=== PATIENT | female | born 1975 | race Caucasian/White ===

== ENCOUNTER → 2020-08-25 13:44 | Outpatient (CLI) | payer OTHER, SELFPAY ==
--- NOTE | ~2020-08-25 | MM_ITS ---
EXAMINATION: MM screening saúl BI w lesley HISTORY: Screening TECHNIQUE: Craniocaudal and mediolateral oblique 3-D tomosynthesis images were obtained and synthetic 2-D images were generated. CAD analysis was submitted and interpreted. COMPARISON: Comparison to multiple prior studies sequentially, with oldest reviewed study dated 08/24. BREAST PARENCHYMAL COMPOSITION: There are scattered areas of fibroglandular density. FINDINGS: There is no evidence of suspicious mass, calcification, or architectural distortion to sugg est malignancy in either breast. There has been no suspicious interval change. IMPRESSION: 1. No mammographic evidence of malignancy. 2. Recommend routine screening mammography in one year. BI-RADS Category 1: Negative Reviewed, dictated and finalized at location A. 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
== END ==
PROVIDERS: Visit Provider Nurse Practitioner
DX: Z12.31 Encounter for screening mammogram for malignant neoplasm of breast (principal)
CPT/HCPCS: 77063; 77067

== ENCOUNTER → 2022-05-16 10:47 | Outpatient (CLI) | payer BC, SELFPAY ==
--- NOTE | ~2022-05-16 | US_ITS ---
EXAMINATION: US right upper quadrant DATE: 05/16/2022 11:31 INDICATION: Elevated liver enzymes TECHNIQUE: Multiple grayscale and Doppler ultrasound images of the abdomen were obtained. COMPARISON: None available FINDINGS: The head and body of the pancreas are normal. The pancreatic tail is obscured by bowel gas. The liver is normal with normal echogenicity and echotexture. No surface nodularity. Normal hepatope vince flow in the main portal vein. A stone is present in the nondistended gallbladder. There also appe ars to be a small amount of gallbladder sludge. No pericholecystic fluid or gallbladder wall thickeni ng are identified. The normal common bile duct measures 4 mm. There was no sonographic Contreras sign. IMPRESSION: 1. Cholelithiasis and gallbladder sludge without evidence of cholecystitis. Reviewed, dictated and finalized at location B.
== END ==
PROVIDERS: PCP Family Medicine; Visit Provider Nurse Practitioner Family
DX: R74.8 Abnormal levels of other serum enzymes (principal); K80.20 Calculus of gallbladder without cholecystitis without obstruction; K83.9 Disease of biliary tract, unspecified
CPT/HCPCS: 76705

== ENCOUNTER → 2022-07-25 12:30 | Outpatient (CLI) | payer BC, SELFPAY ==
--- NOTE | ~2022-07-25 | MM_ITS ---
EXAMINATION: MM screening saúl BI w lesley HISTORY: Screening mammogram TECHNIQUE: Craniocaudal and mediolateral oblique 3-D tomosynthesis images were obtained and synthetic 2-D images were generated. CAD analysis was submitted and interpreted. COMPARISON: 08/25/2020, 01/30/2018, 06/07/2016 bilateral screening mammogram examinations BREAST PARENCHYMAL COMPOSITION: There are scattered areas of fibroglandular density. FINDINGS: There is no evidence of suspicious mass, calcification, or architectural distortion to sugg est malignancy in either breast. There has been no suspicious interval change. IMPRESSION: 1. No mammographic evidence of malignancy. 2. Recommend routine screening mammography in one year. BI-RADS Category 1: Negative Reviewed, dictated and finalized at location A. [employer] TECHNICIAN
== END ==
PROVIDERS: PCP Nurse Practitioner Family; Visit Provider Nurse Practitioner
DX: Z12.31 Encounter for screening mammogram for malignant neoplasm of breast (principal)
CPT/HCPCS: 77063; 77067

== ENCOUNTER 2024-04-29 12:44 | Outpatient (CLI) | payer OTHER, SELFPAY ==
--- NOTE | ~2024-04-29 | MM_ITS ---
EXAMINATION: MM screening saúl BI w lesley HISTORY: Screening TECHNIQUE: Craniocaudal and mediolateral oblique 3-D tomosynthesis images were obtained and synthetic 2-D images were generated. CAD analysis was submitted and interpreted. COMPARISON: Comparison to multiple prior studies sequentially, with oldest reviewed study dated 12/2017. BREAST PARENCHYMAL COMPOSITION: Not dense: There are scattered areas of fibroglandular density. FINDINGS: There is a developing asymmetry in the lower central aspect of the right breast, posterior third. The left breast is stable without evidence for malignancy. IMPRESSION: 1. Developing focal asymmetry in the lower central right breast. 2. Additional mammographic views and possible breast ultrasound are recommended. BI-RADS Category 0: Incomplete: Needs additional imaging evaluation. Reviewed, dictated and finalized at location B. IMPRESSION: 1. Developing focal asymmetry in the lower central right breast. 2. Additional mammographic views and possible breast ultrasound are recommended . BI-RADS Category 0: Incomplete: Needs additional imaging evaluation.
== END 2024-04-29 12:45 | disposition home or self-care (01) ==
PROVIDERS: PCP Nurse Practitioner Family; Visit Provider Nurse Practitioner
DX: Z12.31 Encounter for screening mammogram for malignant neoplasm of breast (principal)
CPT/HCPCS: 77063; 77067

== ENCOUNTER 2024-05-20 12:54 | Outpatient (CLI) | payer OTHER, SELFPAY ==
--- NOTE | ~2024-05-20 | MMUS_ITS ---
EXAMINATION: MM diagnostic saúl RT w lesley, US breast RT limited HISTORY: Follow-up right breast mass TECHNIQUE: Additional 3-D tomosynthesis images of the right breast were performed and synthetic 2-D i mages were generated. CAD analysis was submitted and interpreted. High resolution Limited right breas t ultrasound was performed. COMPARISON: Comparison to multiple prior studies sequentially, with oldest reviewed study dated 05/28. BREAST PARENCHYMAL COMPOSITION: Not dense: There are scattered areas of fibroglandular density.. FINDINGS: MAMMOGRAPHIC FINDINGS: There is a low-density mass in the lower central aspect of the right breast, middle-posterior depth. There are no suspicious areas of architectural distortion or calcification. ULTRASOUND: Limited right breast ultrasound: At 3:00, 2 cm from the nipple there is a 5 mm cyst. At 6:00, 2 cm fr om the nipple there is a 9 mm cyst. This corresponds to the mammographic finding. IMPRESSION: 1. No evidence for malignancy in the right breast. Benign findings. 2. Routine yearly screening mammogram and regular clinical breast examination are recommended. BI-RADS Category 2: Benign finding(s). Reviewed, dictated and finalized at location B. IMPRESSION: 1. No evidence for malignancy in the right breast. Benign findings. 2. Routine yearly screening mammogram and regular clinical breast examination a re recommended. BI-RADS Category 2: Benign finding(s).
== END 2024-05-20 12:55 | disposition home or self-care (01) ==
PROVIDERS: PCP Nurse Practitioner Family; Visit Provider Obstetrics & Gynecology Gynecology
DX: R92.8 Other abnormal and inconclusive findings on diagnostic imaging of breast (principal)
CPT/HCPCS: 76642; 77061; 77065; G0279

== ENCOUNTER 2025-07-01 15:39 | Outpatient (CLI) | payer OTHER, SELFPAY ==
--- NOTE | ~2025-07-01 | MM_ITS ---
EXAMINATION: MM screening saúl BI w lesley HISTORY: Screening. TECHNIQUE: Craniocaudal and mediolateral oblique 3-D tomosynthesis images were obtained and synthetic 2-D images were generated. CAD analysis was submitted and interpreted. COMPARISON: 2023, 2021, and 2020. BREAST PARENCHYMAL COMPOSITION: Dense: The breasts are heterogeneously dense FINDINGS: No suspicious masses are seen. There are no suspicious calcifications. No unexplained architectural distortion is seen. There are no skin or nipple abnormalities identified. There is no adenopathy seen on the images submitted. IMPRESSION: No mammographic or sonographic evidence to suggest malignancy is seen. The patient may return to screening mammography as per ACR guidelines. BI-RADS 1 - Negative. Reviewed, dictated and finalized at location B. GER RISK IMPRESSION: No mammographic or sonographic evidence to suggest malignancy is seen. The benita ent may return to screening mammography as per ACR guidelines. BI-RADS 1 - Negative.
== END 2025-07-01 15:40 | disposition home or self-care (01) ==
LOC: MICIMG 15:40
PROVIDERS: Visit Provider Nurse Practitioner Family
DX: Z12.31 Encounter for screening mammogram for malignant neoplasm of breast (principal)
CPT/HCPCS: 77063; 77067